=== PATIENT | male | born 1965 | race Asian ===

== ENCOUNTER 2021-05-05 06:19 | Day surgery (SDC) | payer MEDICAID, SELFPAY ==
[~2021-05-05] VITALS: Ht 170.2 cm; Wt 83.9 kg
[2021-05-05] MEDS ORDERED: SIMETHICONE 40 MG/0.6 ML ML ONE (06:51)
[2021-05-05] MEDS ORDERED: MIDAZOLAM HCL 5 MG/5 ML VIAL ONE (06:51)
[2021-05-05] MEDS ORDERED: MEPERIDINE 100 MG INJ. 100 MG/ML VIAL ONE (06:51)
[2021-05-05 13:19] VITALS: BP_SYST 100
== END 2021-05-05 09:35 | disposition home or self-care (01) ==
LOC: SDS 06:19 → SMU 06:22 → EDSEX 08:00 → SDS 09:35
PROVIDERS: ATTEND Internal Medicine Gastroenterology
DX: Z12.11 Encounter for screening for malignant neoplasm of colon (principal); D12.4 Benign neoplasm of descending colon; K62.1 Rectal polyp; K64.8 Other hemorrhoids; I10 Essential (primary) hypertension; E78.5 Hyperlipidemia, unspecified; Z79.899 Other long term (current) drug therapy; Z20.822 Contact with and (suspected) exposure to COVID-19
CPT/HCPCS: 36415; 45380; 45385; 87426; 88305; 99152; 99153; G0378; J2175; J2250; U0003